=== PATIENT | female | born 1950 | race Caucasian/White ===

== ENCOUNTER 2021-04-03 21:51 | Emergency (ER) | payer MEDICARE, MEDICAID ==
[~2021-04-03] VITALS: Ht 175.3 cm; Wt 66.8 kg
[2021-04-03 22:16] LABS: BASOPHILS # (AUTO) 0.1 X10'3 (0-0.2); BASOPHILS % (AUTO) 1.1 % (0-1); EOSINOPHILS % (AUTO) 0.8 % (0-6); HEMATOCRIT 37.2 % (35.0-45.0); HEMOGLOBIN 12.5 g/dl (12.0-16.0); LYMPHOCYTES # (AUTO) 2.1 X10'3 (1.1-4.8); LYMPHOCYTES % (AUTO) 32.7 % (21-51); MEAN CORPUSCULAR HEMOGLOBIN 30.9 PG (27.0-31.0); MEAN CORPUSCULAR HGB CONC 33.5 g/dL (33.0-36.5); MEAN CORPUSCULAR VOLUME 92.2 FL (78-98); MEAN PLATELET VOLUME 8.7 FL (7.4-10.4); MONOCYTES # (AUTO) 0.8 X10'3 (0-0.9); MONOCYTES % (AUTO) 12.3 % (2-12); NEUTROPHILS # (AUTO) 3.4 X10'3 (1.8-7.7); NEUTROPHILS % (AUTO) 53.1 % (42-75); PLATELET COUNT 200 X10'3 (140-440); RED BLOOD COUNT 4.03 X10'6 (4.20-5.60); RED CELL DISTRIBUTION WIDTH 13.4 % (11.5-14.5); WHITE BLOOD COUNT 6.4 X10'3 (4.5-11.0)
[2021-04-03 22:50] LABS: ALANINE AMINOTRANSFERASE 14 U/L (12-78); ALBUMIN 3.4 G/DL (3.4-5.0); ALBUMIN/GLOBULIN RATIO 1.1 (1.1-1.5); ALKALINE PHOSPHATASE 88 IU/L (46-116); ANION GAP 10 (8-16); ASPARTATE AMINO TRANSFERASE 11 U/L (10-37); BILIRUBIN,TOTAL 0.2 MG/DL (0.1-1.0); BLOOD UREA NITROGEN 22 MG/DL (7-18); BUN/CREATININE RATIO 15.8 (6.6-38.0); CALCIUM 9.1 MG/DL (8.5-10.1); CHLORIDE 105 MMOL/L (99-107); CREATININE 1.39 MG/DL (0.40-0.90); GLUCOSE 171 MG/DL (70-104); POTASSIUM 3.9 MMOL/L (3.5-5.1); SODIUM 142 MMOL/L (135-145); TOTAL PROTEIN 6.6 G/DL (6.4-8.2); eGFR 37 ML/MIN
[2021-04-03 23:00] LABS: ETHANOL < 0.010 GM/DL (0.0-0.010)
[2021-04-03 23:45] LABS: URINE AMPHETAMINE SCREEN NEGATIVE (Neg); URINE BARBITUATE SCREEN NEGATIVE (Neg); URINE BENZODIAZEPINES SCREEN NEGATIVE (Neg); URINE CANNABINOID SCREEN NEGATIVE (Neg); URINE COCAINE SCREEN NEGATIVE (Neg); URINE METHADONE SCREEN NEGATIVE (Neg); URINE OPIATE SCREEN NEGATIVE (Neg); URINE PHENCYCLIDINE SCREEN NEGATIVE (Neg)
[2021-04-03] MEDS ORDERED: GLIM1TAB PO (23:48)
[2021-04-03] MEDS ORDERED: ATOR10TA70 PO (23:48)
[2021-04-03] MEDS ORDERED: BENZ1TAB7 PO (23:48)
[2021-04-03] MEDS ORDERED: CELE-193 PO (23:48)
[2021-04-04] MEDS ORDERED: DOCU100C40 PO (00:04)
[2021-04-04] MEDS ORDERED: LACT10SO3 PO (00:04)
[2021-04-04] MEDS ORDERED: MAG355OR18 PO (00:04)
[2021-04-04] MEDS ORDERED: METF500T PO (00:04)
[2021-04-04] MEDS ORDERED: VALP500V2 PO (00:04)
[2021-04-04] MEDS ORDERED: PANT-47 PO (00:04)
[2021-04-04] MEDS ORDERED: FLO0.1T PO (00:04)
[2021-04-04] MEDS ORDERED: HYDR-3972 PO (00:04)
[2021-04-04] MEDS ORDERED: SITA100T11 PO (00:04)
[2021-04-04] MEDS ORDERED: RISP1TAB13 PO (00:04)
[2021-04-04] MEDS ORDERED: PSYL575P22 PO (00:04)
[2021-04-04] MEDS ORDERED: TIZA4CAP PO (00:05)
[2021-04-04] MEDS ORDERED: ACET-1008 PO (00:08)
[2021-04-04] MEDS ORDERED: RIVA20TA PO (00:08)
--- NOTE | 2021-04-04 03:25 | NUR ---
PT SLEEPING, LYING ON HER BACK, RR 14 AND UNLABORED. ROOM STRIPPED. PT STILL NEEDS TO BE DRESSED IN GREEN SCRUBS. 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 DECISION MADE TO WAIT UNTIL PT AWAKENS.
--- NOTE | 2021-04-04 04:52 | NUR ---
PT PACKET FAXED TO [facility]
[2021-04-04] MEDS ORDERED: mag hydrox/Alum hydrox/simeth 30ml oral suspension PO PRN (05:30)
[2021-04-04] MEDS ORDERED: HYDROcodone/acetaminophen 10/325mg tab PO PRN (05:30)
[2021-04-04] MEDS ORDERED: acetaminophen 325mg tablet PO PRN (05:30)
[2021-04-04] MEDS ORDERED: tizanidine 4mg tablet PO PRN (05:30)
[2021-04-04] MEDS ORDERED: lactulose 20gm/30ml cup PO PRN (05:30)
[2021-04-04 05:47] VITALS: BP 104/72
--- NOTE | 2021-04-04 06:14 | NUR ---
francisco daniels, , pts sister , listed as secondary decision maker, calling for update.
[2021-04-04] MEDS ORDERED: glimepiride 1 MG tablet PO SCH (08:00)
[2021-04-04] MEDS ORDERED: linagliptin 5mg tablet PO SCH (08:00)
[2021-04-04] MEDS ORDERED: celeCOXIB 100mg capsule PO SCH (08:00)
[2021-04-04] MEDS ORDERED: metFORMIN 500mg tablet PO SCH (08:00)
[2021-04-04] MEDS ORDERED: fludrocortisone acetate 0.1mg tablet PO SCH (08:00)
[2021-04-04] MEDS ORDERED: psyllium seed 3.4 gm packet PO SCH (08:00)
[2021-04-04] MEDS ORDERED: pantoprazole 40mg Tablet.DR PO SCH (08:00)
[2021-04-04] MEDS ORDERED: docusate sod 100mg capsule PO SCH (08:00)
[2021-04-04] MEDS ORDERED: risperiDONE 0.5mg tablet PO SCH (08:00)
--- NOTE | 2021-04-04 09:00 | NUR ---
GAVE PT BREAKFAST TRAY, PT ONLY ATE A FEW BITES DUE TO ABD PAIN. RN AWARE, MD ORDERED CT.
--- NOTE | 2021-04-04 09:14 | NUR ---
Pt complaining of acute sharp RLQ/R flank abdominal pain. MD aware.
--- NOTE | 2021-04-04 10:21 | NUR ---
assumed care of pt from Celia BRAUN
--- NOTE | 2021-04-04 11:10 | NUR ---
PT INFORMED OF CT RESULTS, PT NOW WILLING TO TAKE HER HER MORNING MEDICATIONS THAT SHE REFUSED THIS MORNING. RN AWARE. [facility] AT BEDSIDE EVALUATING PT, REPORTS THEY WILL NOT PLACE PT ON A HOLD.
--- NOTE | 2021-04-04 11:21 | NUR ---
pt has been evaluated by [facility], plan to send back to facility, pt stated "I don't want to kill myself...I want to watch the baby grow up", pt also agreed to take medications, able to swallow pills one at a time, no difficulty swallowing
--- NOTE | 2021-04-04 11:34 | NUR ---
report given to Danelle BRAUN at [facility], she will call back with plan to transfer pt back to facility
--- NOTE | 2021-04-04 12:06 | NUR ---
[facility] WILL BE HERE APPROX 1230 TO TAKE PT BACK TO [facility]
[2021-04-04] MEDS ORDERED: rivaroxaban 20mg tablet PO SCH (17:00)
[2021-04-04] MEDS ORDERED: atorvastatin 10mg tablet PO SCH (21:00)
[2021-04-04] MEDS ORDERED: benztropine 1mg tablet PO SCH (21:00)
== END 2021-04-04 12:51 ==
LOC: ER 21:52
DX: R45.851 Suicidal ideations (principal); Z20.822 Contact with and (suspected) exposure to COVID-19; R06.02 Shortness of breath; J44.9 Chronic obstructive pulmonary disease, unspecified; F17.200 Nicotine dependence, unspecified, uncomplicated; F20.9 Schizophrenia, unspecified; Z60.2 Problems related to living alone; Z79.899 Other long term (current) drug therapy
CPT/HCPCS: 36415; 74176; 80053; 80164; 80305; 80320; 84443; 85025; 87635; 99285; C9803